=== PATIENT | female | born 1985 | race Caucasian/White ===

== ENCOUNTER 2016-10-26 11:18 | Emergency (ER) | payer MEDICAID, OTHER ==
[~2016-10-26] VITALS: Ht 172.7 cm; Wt 96.5 kg
[2016-10-26 11:20] VITALS: BP 126/82
== END 2016-10-26 12:28 | disposition home or self-care (01) ==
LOC: ED 12:22
DX: O99.512 Diseases of the respiratory system complicating pregnancy, second trimester (principal); J00 Acute nasopharyngitis [common cold]; Z3A.21 21 weeks gestation of pregnancy; Z87.01 Personal history of pneumonia (recurrent)
CPT/HCPCS: 71010; 99283

== ENCOUNTER 2017-05-20 23:13 | Emergency (ER) | payer MEDICAID ==
[~2017-05-20] VITALS: Ht 172.7 cm; Wt 101.2 kg
[2017-05-20 23:14] VITALS: BP 147/91
== END 2017-05-20 23:53 | disposition home or self-care (01) ==
LOC: ED 23:39
DX: B02.29 Other postherpetic nervous system involvement (principal); M54.2 Cervicalgia
CPT/HCPCS: 99283

== ENCOUNTER 2019-07-01 15:35 | Emergency (ER) | payer MEDICAID ==
[~2019-07-01] VITALS: Ht 172.7 cm; Wt 83.2 kg
--- NOTE | 2019-07-01 16:06 | NUR ---
PT STATES SHE HAD TRIPPED ON A RUG AND FELL ONTO HER FIREPLACE, THIS HAPPENED THIS AM APPROX 0900. PT HIT HER R HIP AREA, PT ALSO REPORTS BLOOD IN URINE THIS MORNING AFTER EVENT. PT DENIES OTHER URINARY SYMPTOMS. PT DENIES LOC. PT VERY TEARFUL, CRYING DURING ASSESSMENT. ERPROVIDER IN TO EVAL PT
[2019-07-01] MEDS ORDERED: HYDROcodone/APAP 5/325 TABLET PO ONE (16:30)
[2019-07-01] MEDS ORDERED: HYDROcodone/APAP 5/325 TABLET ONE (16:49)
[2019-07-01 16:54] VITALS: BP 99/52
--- NOTE | 2019-07-01 17:09 | NUR ---
PT RESTING ON GURNEY COMFORTABLY, THREE VERBAL CUE TO AWAKEN PT. ERPROVIDER ORDERED NORCO, PT MEDICATED PER APR. AWAITING CT
== END 2019-07-01 18:09 | disposition home or self-care (01) ==
LOC: ED 18:00
DX: S29.012A Strain of muscle and tendon of back wall of thorax, initial encounter (principal); S30.1XXA Contusion of abdominal wall, initial encounter; F17.200 Nicotine dependence, unspecified, uncomplicated; Z90.89 Acquired absence of other organs; W01.0XXA Fall on same level from slipping, tripping and stumbling without subsequent striking against object, initial encounter; Y93.89 Activity, other specified; Y92.098 Other place in other non-institutional residence as the place of occurrence of the external cause; Y99.8 Other external cause status
CPT/HCPCS: 74176; 99284

== ENCOUNTER 2020-08-26 11:00 | Emergency (ER) | payer MEDICAID ==
[~2020-08-26] VITALS: Ht 172.7 cm; Wt 112.9 kg
[2020-08-26 11:26] VITALS: BP 130/92
--- NOTE | 2020-08-26 11:27 | NUR ---
pt presents to ed with c/o R calf pain after hopping a fence yesterday. pt denies any other pain. no obvious deformity or other trauma noted. some scratch walter throughout legs from wlking through bushes noted.
--- NOTE | 2020-08-26 11:42 | NUR ---
brenda Rodriguez at bedside for eval
[2020-08-26] MEDS ORDERED: KETOROLAC 60 MG/2 ML ONE (12:16)
--- NOTE | 2020-08-26 12:28 | NUR ---
pt medicated per order, tolerated well, nadn.
[2020-08-26] MEDS ORDERED: KETOROLAC 30 MG/1 ML IM ONE (12:30)
== END 2020-08-26 14:23 | disposition home or self-care (01) ==
LOC: ED 12:32
DX: S86.911A Strain of unspecified muscle(s) and tendon(s) at lower leg level, right leg, initial encounter (principal); X58.XXXA Exposure to other specified factors, initial encounter; Y93.39 Activity, other involving climbing, rappelling and jumping off; Y92.89 Other specified places as the place of occurrence of the external cause; Y99.8 Other external cause status
CPT/HCPCS: 73590; 96372; 99283; J1885